=== PATIENT | male | born 1955 | race Caucasian/White ===

== ENCOUNTER 2020-05-02 18:27 | Emergency (ER) | payer OTHER ==
--- OUTSIDE RECORDS SUMMARY | 2020-05-02 18:31 | XMS REPORT | Continuity of Care Document ---
:1955 Author Organization [facility] t Address [address] [place] [address] Care Team Providers Name Role Phone Asrh STUBBS, K.H. Attending Clinician Problems This patient has no known problems. Allergies, Adverse Reactions, Alerts This patient has no known allergies or adverse reactions. Medications This patient has no known medications. Procedures This patient has no known procedures. Encounters Start End Encounter Admission Attending Care Care Encounter Source Date/Time Date/Time Type Type Clinicians Facility Department ID 2019-12-17 2019-12-17 Office Arsh [facility] [id number] 10:28:45 11:05:04 Visit Paris Medina [id number] [place] [id number] Rl [id number] [facility] 059 Building 2019-12-17 2019-12-17 Telephone Arsh [facility] [id number] 00:00:00 00:00:00 Paris Medina [id number] [place] [id number] [phone] [facility] Results This patient has no known results.
[2020-05-02] MEDS ORDERED: ACETAMINOPHEN 325 MG TABLET ONE (19:47)
[2020-05-02] MEDS ORDERED: NA CHLORIDE 0.9% 1,000 ML ONE (19:47)
--- NOTE | 2020-05-02 19:50 | RAD REPORT ---
EXAM DESCRIPTION: Melanie Single View05/02/2020 7:41 pm CLINICAL HISTORY: Fever COMPARISON: None FINDINGS: The lungs appear clear of acute infiltrate. The heart is mildly enlarged. Postsurgical changes involve the chest. IMPRESSION: No acute abnormalities displayed
[2020-05-02 20:21] LABS: Absolute Lymphocytes (CBC) 0.9 K/uL (0.7-4.9); Basophils % 0.5 % (0-1.3); Hematocrit 40.4 % (39.6-49.0); Lymphocytes % 18.8 % (15.3-44.8); MPV 8.6 fL (7.6-11.3); RBC Red Blood Cell Count 4.88 M/uL (4.33-5.43)
[2020-05-02 20:40] LABS: Potassium 3.8 mmol/L (3.5-5.1)
[2020-05-02 20:54] LABS: Urine Blood 2+ (NEG); Urine Glucose 2+ (NEG); Urine Protein 3+ (NEG); Urine Specific Gravity >1.030 (1.005-1.030); Urine pH 5.5 (5.0-7.0)
[2020-05-02 21:17] LABS: Urine Bacteria <20 /HPF (NONE SEEN); Urine Culture Reflex Order NOT NEEDED; Urine RBC <5 /HPF (NONE SEEN)
--- NOTE | 2020-05-02 21:34 | RAD REPORT ---
EXAM DESCRIPTION: CT - Angio Aorta For Dissection - 05/02/2020 9:02 pm CLINICAL HISTORY: . Chest and abd pain COMPARISON: None TECHNIQUE: Computed tomography angiography of the chest, abdomen pelvis were obtained. 100 cc Isovue 370 was administered intravenously. Coronal and sagittal reconstruction were performed. MIP 3D reconstruction was performed All CT scans are performed using dose optimization technique as appropriate and may include automated exposure control or mA/KV adjustment according to patient size. FINDINGS: An aortic dissection is not seen. An aortic aneurysm is not displayed. The celiac, SMA and YESIKA are patent . Mild reticular opacities right lower lobe. . A pericardial effusion is not seen. A pleural effusion i s not noted. The liver,spleen, pancreas adrenals and left kidney demonstrate no significant abnormality. Several right renal calculi. 8 millimeter calculus right renal pelvis with mild right hydronephrosis. Hounsfield unit 1159. Right renal cortical thinning perhaps secondary to prior inflammation The appendix is normal. There no evidence diverticulitis. No ascites is noted. IMPRESSION: Negative for an aortic dissection. A 8 millimeter calculus right renal pelvis resulting in mild right hydronephrosis
--- NOTE | 2020-05-02 22:15 | EDPHYS ---
Physician Documentation [facility] Name: Trell Freeman Age: 65 yrs Sex: Male : 1955 Arrival Date: 05/02/2020 Time: 18:32 Bed 8 Private MD: ED Physician Hong Rodriguez HPI: 05/02 19:29 This 65 yrs old Male presents to ER via Ambulatory with complaints of Fever, rn Back Pain. 19:29 The patient reports fever, not measured (subjective). Onset: The symptoms/episode rn began/occurred 3 day(s) ago. Modifying factors: there are no obvious modifying factors. Severity of symptoms: At their worst the symptoms were moderate in the emergency department the symptoms are unchanged. It is unknown whether or not the patient has had similar symptoms in the past. The patient has not recently seen a physician. Reports subjective fever, generalized weakness and fatigue for 3 days, reports chronic neck pain that is aching more lately, right sided chest pain that is dull and not assoc with cough, and mid to upper back pain. NO vomiting/diarrhea/blood in stool. No trauma. . Historical: - Allergies: 19:15 No Known Allergies; ca1 - PMHx: 19:15 Diabetes - IDDM; Hypertension; Myocardial infarction; High Cholesterol; ca1 - PSHx: 19:15 CABG; Neck surgery; Cholecystectomy; ca1 - Immunization history:: Flu vaccine is up to date. - Social history:: Smoking status: Patient denies any tobacco usage or history of. - Family history:: not pertinent. - Hospitalizations: : No recent hospitalization is reported. ROS: 19:29 Constitutional: + fever and chills Eyes: Negative for injury, pain, redness, and tube turner, ENT: Negative for injury, pain, and discharge, Neck: Negative for injury and swelling, Cardiovascular: Negative for palpitations, and edema, Respiratory: Negative for shortness of breath, cough, wheezing, and pleuritic chest pain, Abdomen/GI: Negative for abdominal pain, nausea, vomiting, diarrhea, and constipation, Back: + mid back pain : Negative for injury, bleeding, discharge, and swelling, MS/Extremity: Negative for injury and deformity, Skin: Negative for injury, rash, and discoloration, Neuro: Negative for headache, numbness, tingling, and seizure. Exam: 19:29 Constitutional: This is a well developed, well nourished patient who is awake, alert, rn and in no acute distress. Ambulatory to room without difficulty or assistance. Head/Face: Normocephalic, atraumatic. Eyes: Pupils equal round and reactive to light, extra-ocular motions intact. ENT: dry MM, no stridor Neck: Trachea midline, no masses, no meningeal signs, neck supple Cardiovascular: Regular rate and rhythm. No pulse deficits. Respiratory: Speaking full sentences, unlabored Abdomen/GI: soft, non-tender Back: No spinal tenderness. No costovertebral tenderness. Full range of motion. Skin: Warm, dry MS/ Extremity: Pulses equal, no cyanosis. Neurovascular intact. Full, normal range of motion. Equal circumference. Neuro: Awake and alert, GCS 15, oriented to person, place, time, and situation. Cranial nerves II-XII grossly intact. Motor strength 5/5 in all extremities. Sensory grossly intact. Cerebellar exam normal. Normal gait. Vital Signs: 19:08 BP 168 / 94; Pulse 89; Resp 19 S; Temp 101.1(O); Pulse Ox 97% on R/A; Weight 99.79 kg ca1 (R); Height 5 ft. 8 in. (172.72 cm) (R); Pain 5/10; 20:30 BP 146 / 85; Pulse 70; Resp 20; Pulse Ox 99% ; rr5 21:30 BP 139 / 89; Pulse 76; Resp 17; Pulse Ox 98% ; rr5 22:30 BP 141 / 75; Pulse 76; Resp 19; Temp 99; Pulse Ox 99% ; rr5 22:57 BP 136 / 83; Pulse 79; Resp 16; Pulse Ox 99% ; rr5 19:08 Body Mass Index 33.45 (99.79 kg, 172.72 cm) ca1 MDM: 19:17 Patient medically screened. rn 22:11 Differential diagnosis: viral Infection, bacterial infection, pneumonia UTI, COVID, flu.rn 22:12 Data reviewed: vital signs, nurses notes, lab test result(s), radiologic studies, CT rn scan, plain films, and as a result, I will discharge patient. Counseling: I had a detailed discussion with the patient and/or guardian regarding: the historical points, exam findings, and any diagnostic results supporting the discharge/admit diagnosis, lab results, radiology results, the need for outpatient follow up, to return to the emergency department if symptoms worsen or persist or if there are any questions or concerns that arise at home. Response to treatment: the patient's symptoms have markedly improved after treatment, and as a result, I will discharge patient. Special discussion: I discussed with the patient/guardian in detail that at this point there is no indication for admission to the hospital. It is understood, however, that if the symptoms persist or worsen the patient needs to return immediately for re-evaluation. ED course: Pt feels better, no acute findings on w/u, normal WBC/procal/lactate, neg flu/strep, covid sent. CT shows 8mm renal pelvic stone, patient states "always passing stones", and this doesn't feel like a stone problem. [facility] given no clear etiology of fever and this finding of pelvis stone, does not want to be admitted or transferred, will given abx, and dc home per his wishes, states [facility] , return precautions given and understood. . 05/02 18:57 Order name: Urine Culture [facility] 05/02 18:57 Order name: Urine Microscopic Only; Complete Time: 21:42 [facility] 05/02 19:28 Order name: COVID-19 05/02 19:28 Order name: Flu; Complete Time: 21:42 05/02 19:28 Order name: Strep; Complete Time: 21:42 05/02 19:28 Order name: Blood Culture Adult (2) 05/02 19:28 Order name: CXR XRAY; Complete Time: 19:54 05/02 19:28 Order name: Procalcitonin; Complete Time: 21:42 05/02 19:28 Order name: Lactate; Complete Time: 21:42 05/02 19:28 Order name: CT Aorta for Dissection; Complete Time: 21:42 05/02 19:35 Order name: CBC with Diff; Complete Time: 20:24 05/02 19:35 Order name: Basic Metabolic Panel; Complete Time: 21:42 05/02 20:32 Order name: Urine Dipstick--Ancillary (enter results); Complete Time: 21:42 tt3 05/02 20:56 Order name: Throat Culture EDND 05/02 18:57 Order name: Urine Dipstick-Ancillary (obtain specimen); Complete Time: 20:26 snw 05/02 19:28 Order name: Droplet/Contact Precautions; Complete Time: 19:57 rn 05/02 19:28 Order name: O2 Per Protocol; Complete Time: 19:58 rn Administered Medications: 19:56 Drug: Tylenol 650 mg Route: PO; rr5 21:00 Follow up: Response: No adverse reaction; Temperature is decreased rr5 19:56 Drug: NS 0.9% 500 ml Route: IV; Rate: bolus; Site: right antecubital; rr5 20:26 Follow up: Response: No adverse reaction; IV Status: Completed infusion; IV Intake: rr5 500ml 22:37 Drug: Rocephin 1 grams Route: IV; Rate: calculated rate; Site: right forearm; rr5 22:56 Follow up: Response: No adverse reaction; IV Status: Completed infusion; IV Intake: [id number] Disposition: 05/02/20 22:14 Discharged to Home. Impression: Fever of other and unknown origin. - Condition is Stable. - Discharge Instructions: Fever, Adult. - Prescriptions for Zofran ODT 4 mg Oral tablet,disintegrating - place 1 tablet by TRANSLINGUAL route every 8 hours As needed; 20 tablet. Tylenol- Codeine #3 300-30 mg Oral Tablet - take 1 tablet by ORAL route every 6 hours As needed; 20 tablet. cefpodoxime 100 mg Oral Tablet - take 2 tablet by ORAL route every 12 hours for 10 days take with food; 40 tablet. - Medication Reconciliation Form, Thank You Letter, Antibiotic Education, Prescription Opioid Use form. - Follow up: Private Physician; When: As needed; Reason: Recheck today's complaints, Re-evaluation by your physician. - Problem is new. - Symptoms have improved. Signatures: Dispatcher [employer] EDInessa López, TELETYPE OR VARITYPE KEYBOARD OPERATOR-C TELETYPE OR VARITYPE KEYBOARD OPERATOR-Csnw Hong Rodriguez MD MD rn Roque, Raymond RN RN rr5 Neva Whelan RN RN ca1 Corrections: (The following items were deleted from the chart) 22:58 22:14 05/02/2020 22:14 Discharged to Home. Impression: Fever of other and unknown rr5 origin. Condition is Stable. Forms are Medication Reconciliation Form, Thank You Letter, Antibiotic Education, Prescription Opioid Use. Follow up: Private Physician; When: As needed; Reason: Recheck today's complaints, Re-evaluation by your physician. Problem is new. Symptoms have improved. rn
--- NOTE | 2020-05-02 22:15 | ER ---
Nurse's Notes [facility] Name: Trell Freeman Age: 65 yrs Sex: Male : 1955 Arrival Date: 05/02/2020 Time: 18:32 Bed 8 Private MD: Diagnosis: Fever of other and unknown origin Presentation: 05/02 19:08 Chief complaint: Patient states: I have been feeling bad 3-4 days, gradually feeling ca1 worse. this morning, started having back pain up my neck, Chest pain on the R side goes to back, R shoulder. C/O neck pain with movement. Denies cough. Denies injury to chest. Hx of heart attack last year. Coronavirus screen: Client denies travel out of the [place] in the last 14 days. fatigue, fever. Ebola Screen: Patient negative for fever greater than or equal to 101.5 degrees Fahrenheit, and additional compatible Ebola Virus Disease symptoms Patient denies exposure to infectious person. Patient denies travel to an Ebola-affected area in the 21 days before illness onset. No symptoms or risks identified at this time. Initial Sepsis Screen: Does the patient meet any 2 criteria? No. Patient's initial sepsis screen is negative. Does the patient have a suspected source of infection? No. Patient's initial sepsis screen is negative. Risk Assessment: Do you want to hurt yourself or someone else? Patient reports no desire to harm self or others. Onset of symptoms was May 02, 2020. 19:08 Method Of Arrival: Ambulatory ca1 19:08 Acuity: BRIONNA 2 ca1 Historical: - Allergies: 19:15 No Known Allergies; ca1 - PMHx: 19:15 Diabetes - IDDM; Hypertension; Myocardial infarction; High Cholesterol; ca1 - PSHx: 19:15 CABG; Neck surgery; Cholecystectomy; ca1 - Immunization history:: Flu vaccine is up to date. - Social history:: Smoking status: Patient denies any tobacco usage or history of. - Family history:: not pertinent. - Hospitalizations: : No recent hospitalization is reported. Screenin:01 Abuse screen: Denies threats or abuse. Denies injuries from another. Nutritional rr5 screening: No deficits noted. Tuberculosis screening: No symptoms or risk factors identified. Fall Risk IV access (20 points). Total López Fall Scale indicates No Risk (0-24 pts). Assessment: 19:15 General: Appears in no apparent distress. uncomfortable, Behavior is calm, cooperative, rr5 appropriate for age, Reports fever for feeling ill for. Pain: Complains of pain in back Pain Quality of pain is described as aching, Pain began gradually, Is intermittent. Neuro: Level of Consciousness is awake, alert, obeys commands, Oriented to person, place, time. Cardiovascular: Reports chest pain, Capillary refill < 3 seconds Patient's skin is warm and dry. Respiratory: Airway is patent Respiratory effort is even, unlabored, Respiratory pattern is regular, symmetrical. GI: No signs and/or symptoms were reported involving the gastrointestinal system. : No signs and/or symptoms were reported regarding the genitourinary system. EENT: No signs and/or symptoms were reported regarding the EENT system. Derm: Skin is intact, is healthy with good turgor, Skin temperature is warm. Musculoskeletal: Capillary refill < 3 seconds. 19:22 Reassessment: Patient appears in no apparent distress at this time. at bedside sg evaluating pt at this time. 20:30 Reassessment: Patient appears in no apparent distress at this time. Patient is alert, rr5 oriented x 3, equal unlabored respirations, skin warm/dry/pink. awaiting for results. 21:30 Reassessment: Patient appears in no apparent distress at this time. Patient and/or rr5 family updated on plan of care and expected duration. Pain level reassessed. Patient is alert, oriented x 3, equal unlabored respirations, skin warm/dry/pink. 22:55 Reassessment: Patient appears in no apparent distress at this time. Patient is alert, rr5 oriented x 3, equal unlabored respirations, skin warm/dry/pink. discharge instruction given and explained without complaints made Patient states symptoms have improved. Vital Signs: 19:08 BP 168 / 94; Pulse 89; Resp 19 S; Temp 101.1(O); Pulse Ox 97% on R/A; Weight 99.79 kg ca1 (R); Height 5 ft. 8 in. (172.72 cm) (R); Pain 5/10; 20:30 BP 146 / 85; Pulse 70; Resp 20; Pulse Ox 99% ; rr5 21:30 BP 139 / 89; Pulse 76; Resp 17; Pulse Ox 98% ; rr5 22:30 BP 141 / 75; Pulse 76; Resp 19; Temp 99; Pulse Ox 99% ; rr5 22:57 BP 136 / 83; Pulse 79; Resp 16; Pulse Ox 99% ; rr5 19:08 Body Mass Index 33.45 (99.79 kg, 172.72 cm) ca1 ED Course: 18:32 Patient arrived in ED. mr 19:13 Triage completed. ca1 19:15 Arm band placed on right wrist. ca1 19:17 Hong Rodriguez MD is Attending Physician. rn 19:20 Ang Mckinney, CARMEN is Primary Nurse. sg 19:40 Initial lab(s) drawn, by ms, sent to lab. First set of blood cultures drawn by ms. sg Inserted saline lock: 20 gauge in right antecubital area, using aseptic technique. Blood collected. 19:41 CXR XRAY In Process Unspecified. EDMS 19:55 Second set of blood cultures drawn by ms. sg 20:01 Patient has correct armband on for positive identification. Placed in gown. Bed in low rr5 position. Call light in reach. Pulse ox on. NIBP on. 21:02 CT Aorta for Dissection In Process Unspecified. EDMS 22:57 No provider procedures requiring assistance completed. IV discontinued, intact, rr5 bleeding controlled, No redness/swelling at site. Pressure dressing applied. Administered Medications: 19:56 Drug: Tylenol 650 mg Route: PO; rr5 21:00 Follow up: Response: No adverse reaction; Temperature is decreased rr5 19:56 Drug: NS 0.9% 500 ml Route: IV; Rate: bolus; Site: right antecubital; rr5 20:26 Follow up: Response: No adverse reaction; IV Status: Completed infusion; IV Intake: rr5 500ml 22:37 Drug: Rocephin 1 grams Route: IV; Rate: calculated rate; Site: right forearm; rr5 22:56 Follow up: Response: No adverse reaction; IV Status: Completed infusion; IV Intake: [id number] Intake: 20:26 IV: 500ml; Total: 500ml. rr5 22:56 IV: 10ml; Total: 510ml. rr5 Outcome: 22:14 Discharge ordered by . rn 22:57 Discharged to home ambulatory. rr5 22:57 Condition: stable 22:57 Discharge instructions given to patient, Instructed on discharge instructions, follow up and referral plans. medication usage, Demonstrated understanding of instructions, follow-up care, medications, Prescriptions given X 3. 22:58 Patient left the ED. rr5 Addendum: 05/08/2020 08:40 Addendum: COVID-19 Result: Negative result given to RN to notify pt. Notified pt of s s negative COVID 19 swab results. Pt advised that even with a negative test result they should remain in isolation until symptom free for 3 days without medication. Pt also advised to return to the ED for worsening symptoms. Signatures: Dispatcher [employer] EDMS Ang Mckinney, RN RN Saniya Vasquez mr RodriguezHong MD MD rn Smirch, Shelby, RN RN ss Roque, Raymond, RN RN rr5 Neva Whelan RN RN ca1 Corrections: (The following items were deleted from the chart) 05/02 19:19 19:08 Chief complaint: Patient states: I have been feeling bad 3-4 days, gradually ca1 feeling worse. Chest pain on the R side goes to back, R shoulder. C/O neck pain with movement. Denies cough. Denies injury to chest. Hx of heart attack last year. ca1
[2020-05-02] MEDS ORDERED: CEFTRIAXONE/SWI 1gm 1 GM/10 ML SYR ONE (22:39)
[2020-05-03 04:57] VITALS: TEMP 99; O2SAT 99
[2020-05-03 05:02] VITALS: BP 136/83
== END 2020-05-02 22:58 | disposition home or self-care (01) ==
LOC: ER 18:27
DX: R50.9 Fever, unspecified (principal); Z20.828 Contact with and (suspected) exposure to other viral communicable diseases; I10 Essential (primary) hypertension; Z95.1 Presence of aortocoronary bypass graft
CPT/HCPCS: 96365; 87040 ×2; 87070; 87088; 85025; 87086; 80048; 36415; 87081; 83605; 84145; 87804 ×2; 71275; 74175; 71045; 99284; U0002; Q9967; J0696; J7030; 81003; 81015